=== PATIENT | male | born 1950 | race Caucasian/White ===

== ENCOUNTER 2019-08-07 08:35 | Day surgery (SDC) | payer OTHER ==
[2019-08-07] VITALS (9 sets, daily range): BP systolic 97–144; BP diastolic 53–94
[~2019-08-07] VITALS: Ht 170.2 cm; Wt 75.7 kg
[2019-08-07] MEDS ORDERED: diphenhydrAMINE 25mg capsule PO PRN (08:50)
[2019-08-07] MEDS ORDERED: normal saline 1,000 ML IV SCH (08:50)
[2019-08-07 09:19] LABS: BASOPHILS # (AUTO) 0.1 X10'3 (0-0.2); BASOPHILS % (AUTO) 0.7 % (0-1); EOSINOPHILS # (AUTO) 0.1 X10'3 (0-0.9); EOSINOPHILS % (AUTO) 1.9 % (0-6); HEMATOCRIT 48.6 % (42.0-52.0); HEMOGLOBIN 16.9 g/dl (14.0-17.9); LYMPHOCYTES # (AUTO) 1.5 X10'3 (1.1-4.8); LYMPHOCYTES % (AUTO) 19.3 % (21-51); MEAN CORPUSCULAR HEMOGLOBIN 34.4 PG (27.0-31.0); MEAN CORPUSCULAR HGB CONC 34.8 g/dL (33.0-36.5); MEAN CORPUSCULAR VOLUME 98.7 FL (78-98); MEAN PLATELET VOLUME 9.3 FL (7.4-10.4); MONOCYTES # (AUTO) 0.9 X10'3 (0-0.9); MONOCYTES % (AUTO) 11.2 % (2-12); NEUTROPHILS # (AUTO) 5.3 X10'3 (1.8-7.7); NEUTROPHILS % (AUTO) 66.9 % (42-75); PLATELET COUNT 201 X10'3 (140-440); RED BLOOD COUNT 4.92 X10'6 (4.70-6.10); RED CELL DISTRIBUTION WIDTH 12.5 % (11.5-14.5); WHITE BLOOD COUNT 7.9 X10'3 (4.5-11.0)
[2019-08-07] MEDS ORDERED: METO-395 PO (09:22)
[2019-08-07] MEDS ORDERED: MELA3TAB64 PO (09:22)
[2019-08-07] MEDS ORDERED: ATOR40TA PO (09:22)
[2019-08-07] MEDS ORDERED: ASPI81TA52 PO (09:22)
[2019-08-07 09:32] LABS: ALBUMIN 3.9 G/DL (3.4-5.0); ANION GAP 8 (8-16); BLOOD UREA NITROGEN 15 MG/DL (7-18); CALCIUM 9.3 MG/DL (8.5-10.1); CHLORIDE 106 MMOL/L (99-107); CREATININE 0.94 MG/DL (0.60-1.10); GLUCOSE 85 MG/DL (70-104); MAGNESIUM 2.2 MG/DL (1.5-2.4); SODIUM 143 MMOL/L (135-145); TOTAL CARBON DIOXIDE 28.7 MMOL/L (24-32); eGFR 79 ML/MIN
[2019-08-07] MEDS ORDERED: fentaNYL/PF 50MCG/1 ML 2ML syringe ONE (10:30)
[2019-08-07] MEDS ORDERED: iohexol 350 MG/ML 50ML vial IV ONE (10:30)
[2019-08-07] MEDS ORDERED: LIDOcaine 1% 30ml preserv. free vial ONE (10:30)
[2019-08-07] MEDS ORDERED: iohexol 350MG/ML 100ml bottle IV ONE (10:30)
[2019-08-07] MEDS ORDERED: midazolam 2 mg/2 ml injection ONE ×2 (10:30→11:47)
[2019-08-07] MEDS ORDERED: heparin 1,000unit/ml 10ml vial 10 ML ONE ×2 (11:11→11:42)
[2019-08-07] MEDS ORDERED: nitroGLYCERIN-Tridil 50MG/D5W 250 ML IV ONE (11:16)
[2019-08-07] MEDS ORDERED: iohexol 350 MG/1 ML 200ml bottle ONE (11:18)
[2019-08-07] MEDS ORDERED: atropine 0.1mg/ml 10ml syringe ONE (11:18)
[2019-08-07] MEDS ORDERED: epiNEPHrine 1 mg/ml inj ONE (11:20)
[2019-08-07] MEDS ORDERED: epiNEPHrine 0.1mg/ml 10ml syringe ONE (11:21)
[2019-08-07] MEDS ORDERED: DOPamine 400mg/D5W 250ml 250 ML IV ONE (11:22)
[2019-08-07] MEDS ORDERED: tirofiban 5mg in NS 100mL 100 ML IV ONE ×2 (11:23→13:20)
[2019-08-07] MEDS ORDERED: verapamil 2.5 mg/ml inj IV ONE (11:26)
[2019-08-07] MEDS ORDERED: clopidogrel 300mg tablet ONE (12:01)
--- NOTE | 2019-08-07 12:45 | NUR ---
Patient laying flat on gurney, denies pain except at right groin. Right groin dressing intact with some sanguinous drainage, area circled. No hematoma. Pedal pulses intact. Urinated. Instructed on laying flat, given call light. Vss but tachycardic.
--- NOTE | 2019-08-07 13:00 | NUR ---
Appears in afib, stat ekg ordered. Denies cp or sob. no known hx of afib
[2019-08-07] MEDS ORDERED: normal saline 1000ml 1,000 ML IV SCH (13:10)
--- NOTE | 2019-08-07 13:31 | NUR ---
EKG done, appears sinus tach. 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 Denies cp. Per post procedure notes, did rec atropine in OR. Right groin with a little more drainage but groin still soft. 10 mins of manual pressure held and stable.
--- NOTE | 2019-08-07 14:44 | NUR ---
Right groin, pedal pulses stable with no change. Given snacks. at bedside.
== END 2019-08-07 16:09 | disposition home or self-care (01) ==
LOC: SSTAY O 08:35
PROVIDERS: ATTEND Internal Medicine Cardiovascular Disease
DX: R94.39 Abnormal result of other cardiovascular function study (principal); I25.10 Atherosclerotic heart disease of native coronary artery without angina pectoris; I10 Essential (primary) hypertension; E78.5 Hyperlipidemia, unspecified; Z79.899 Other long term (current) drug therapy
CPT/HCPCS: 36415; 80048; 83735; 85025; 85610; 92973; 93005; 93458; 99152; 99153; C1725; C1757; C1769; C1874; C1894; C9600; C9601; J0171; J0461; J1265; J1644; J2001; J2250; J3010; J3246; J7030; Q0163; Q9967; A4620; A6258; C1760; J3490